=== PATIENT | female | born 1960 | race American Indian/Alaskan Native ===

== ENCOUNTER 2018-09-21 07:50 | Outpatient (CLI) | payer OTHER | END 2018-09-21 07:51 | disposition home or self-care (01) | LOC: C.MAMMO 07:51 ==

== ENCOUNTER 2018-10-21 11:10 | Outpatient (CLI) | payer OTHER | END 2018-10-21 11:11 | disposition home or self-care (01) | LOC: C.LAB 11:10 | DX: E11.69 Type 2 diabetes mellitus with other specified complication (principal); E78.2 Mixed hyperlipidemia ==